=== PATIENT | male | born 1960 | race Native Hawaiian/Other Pacific Islander ===

== ENCOUNTER 2022-04-21 03:30 | Emergency (ER) | payer OTHER ==
[~2022-04-21] VITALS: Ht 172.7 cm; Wt 79.8 kg
[2022-04-21 04:10] LABS: PLATELET COUNT 327 K/uL (142-355)
[2022-04-21 04:11] LABS: POTASSIUM 3.8 mmol/L (3.6-5.2)
[2022-04-21 05:45] LABS: PARTIAL THROMBOPLASTIN TIME 28.6 SECONDS (24.5-33.6)
[2022-04-21 07:10] VITALS: BP 108/70; TEMP 98.4
== END 2022-04-21 07:10 | disposition short-term general hospital (02) ==
LOC: ED 03:30
PROVIDERS: Emergency Medicine
DX: M72.6 Necrotizing fasciitis (principal); N17.8 Other acute kidney failure; J18.9 Pneumonia, unspecified organism
CPT/HCPCS: 36415; 80053; 83605; 83690; 84484; 85007; 85027; 85610; 85730; 87635; 93005; 96360; 96361; 96365; 96375; 99284; J2270; J2405; J2543; J3490; U0003

== ENCOUNTER 2022-09-04 14:59 | Observation (INO) | payer OTHER ==
[~2022-09-04] VITALS: Ht 172.7 cm; Wt 71.5 kg
[2022-09-04] VITALS (11 sets, daily range): BP systolic 127–198; BP diastolic 75–101; TEMP 98.3–99.1; Ht 172.7 cm; Wt 71.5 kg
[2022-09-04 15:28] LABS: PLATELET COUNT 303 K/uL (142-355)
[2022-09-04 15:39] LABS: PARTIAL THROMBOPLASTIN TIME 23.8 SECONDS (24.5-33.6)
[2022-09-05 03:42] VITALS: BP 139/80; TEMP 98.6
[2022-09-05 05:24] LABS: PLATELET COUNT 275 K/uL (142-355)
[2022-09-05 07:40] VITALS: BP 154/85; TEMP 98.4
[2022-09-05] MEDS ORDERED: DOXA2TAB PO (08:35)
[2022-09-05] MEDS ORDERED: GLUCOTROL 5MG TAB PO (08:35)
[2022-09-05] MEDS ORDERED: HYDR25TA60 PO (08:36)
[2022-09-05] MEDS ORDERED: METO-837 PO (08:36)
[2022-09-05] MEDS ORDERED: LISI5TAB10 PO (08:36)
[2022-09-05] MEDS ORDERED: PANTOPRAZOLE 40MG TA PO (08:37)
[2022-09-05] MEDS ORDERED: CEFD300C2 PO (08:39)
== END 2022-09-05 08:40 | disposition home or self-care (01) ==
LOC: ED 14:59 → MED/SURG 18:50
PROVIDERS: ADMIT Emergency Medicine; ATTEND Internal Medicine
DX: J18.8 Other pneumonia, unspecified organism (principal); E11.65 Type 2 diabetes mellitus with hyperglycemia; I10 Essential (primary) hypertension; N40.0 Benign prostatic hyperplasia without lower urinary tract symptoms; K21.9 Gastro-esophageal reflux disease without esophagitis; R10.9 Unspecified abdominal pain; N28.9 Disorder of kidney and ureter, unspecified; R05.8 Other specified cough; R06.02 Shortness of breath
CPT/HCPCS: 36415; 36600; 80048; 80053; 81002; 82805; 82948; 83605; 83880; 84484; 85027; 85610; 85730; 87040; 87635; 93005; 96360; 96361; 96365; 96372; 96375; 96376; 99220; 99284; G0378; J0360; J0696; J1815; U0003